=== PATIENT | male | born 1960 | race Caucasian/White ===

== ENCOUNTER 2017-08-26 10:47 | Emergency (ER) | payer OTHER ==
[~2017-08-26] VITALS: Ht 182.9 cm; Wt 81.8 kg
[2017-08-26] MEDS ORDERED: LORazepam 1MG TABLET PO ONE (11:30)
[2017-08-26 11:44] LABS: HEMATOCRIT 48.7 % (39.2-51.8); HEMOGLOBIN 16.9 g/dL (13.7-18.0); WHITE BLOOD COUNT 12.3 x10^3/uL (3.4-10)
[2017-08-26] MEDS ORDERED: LORazepam 1MG TABLET ONE (11:46)
[2017-08-26 11:51] LABS: BLOOD UREA NITROGEN 10 mg/dL (7-18)
[2017-08-26 14:36] VITALS: BP 130/81
== END 2017-08-26 14:38 | disposition home or self-care (01) ==
LOC: ED 13:04
DX: F41.1 Generalized anxiety disorder (principal); R06.4 Hyperventilation
CPT/HCPCS: 36415; 80048; 82040; 85025; 99284

== ENCOUNTER 2021-04-18 13:47 | Emergency (ER) | payer OTHER ==
[~2021-04-18] VITALS: Ht 182.9 cm; Wt 68.8 kg
[2021-04-18 13:51] VITALS: BP 136/80
--- NOTE | 2021-04-18 14:07 | NUR ---
BREAK RN: PT STATES HE HAS BEEN LOSING WEIGHT OVER THE LAST MONTH. [facility], FOOD PROVIDED. PT STATES HE ONLY FEELS LIKE EATING ONCE A DAY. PT THOUGHT ARE NOT FLUENT AT TIMES. PT STATES HE HAS BEEN SEEN AT [facility] FOR SAME A FEW TIMES. "THEY GIVE ME FLUIDS AND SEND ME HOME". PT CONNECTED TO MONITORING. CALL LIGHT IN REACH. AWAITING ORDERS.
--- NOTE | 2021-04-18 14:33 | NUR ---
MD AGUILAR AT BEDSIDE
[2021-04-18 14:50] LABS: BASOPHILS % (AUTO) 1 % (0-1); EOSINOPHILS % (AUTO) 1 % (1-7); LYMPHOCYTES % (AUTO) 34 % (22-44); MEAN CORPUSCULAR HEMOGLOBIN 30.6 pg (27.5-34.5); MEAN CORPUSCULAR HGB CONC 34.3 g/dL (33.2-36.2); MEAN PLATELET VOLUME 7.3 fL (7.4-10.4); MONOCYTES % (AUTO) 6 % (2-9); NEUTROPHILS % (AUTO) 59 % (42-75); PLATELET COUNT 317 x10^3/uL (130-400); RED CELL DISTRIBUTION WIDTH 14.1 % (9.4-14.8)
[2021-04-18 14:56] LABS: MD NO
[2021-04-18 15:01] LABS: ANION GAP 4 mmol/L (5-15); CALCIUM 8.8 mg/dL (8.5-10.1); CHLORIDE 109 mmol/L (98-107); CREATININE 0.64 mg/dL (0.7-1.3)
[2021-04-18 15:02] LABS: ALANINE AMINOTRANSFERASE 19 U/L (12-78); ALBUMIN 3.7 g/dL (3.4-5.0)
[2021-04-18 15:04] LABS: ALKALINE PHOSPHATASE 76 U/L (45-117); BILIRUBIN,TOTAL 0.5 mg/dL (0.2-1.0); TOTAL PROTEIN 6.9 g/dL (6.4-8.2)
--- NOTE | 2021-04-18 15:30 | NUR ---
PT WATCHING, TV. AWAITING LABS
--- NOTE | 2021-04-18 16:29 | NUR ---
Patient given discharge instructions and they have confirmed that they understand the instructions. Patient ambulatory with steady gait.
== END 2021-04-18 16:30 | disposition home or self-care (01) ==
LOC: ED 14:17
DX: R11.0 Nausea (principal); G89.29 Other chronic pain; R10.9 Unspecified abdominal pain; F17.200 Nicotine dependence, unspecified, uncomplicated
CPT/HCPCS: 36415; 71045; 80053; 83690; 85025; 99284